=== PATIENT | male | born 1945 | race Caucasian/White ===

== ENCOUNTER 2024-05-09 08:22 | Day surgery (SDC) | payer MEDICARE ==
[2024-05-09] MEDS: Lactated Ringers 1,000 ML IV SCH (08:43)
[2024-05-09 09:09] VITALS: RESP 18
[2024-05-09] MEDS ORDERED: Xylocaine-Mpf 2% 5 Ml Vial ONE (11:33)
[2024-05-09] MEDS ORDERED: DIPRIVAN 200 MG/20 ML IV ONE (11:33)
[2024-05-09 12:29] VITALS: TEMP 98
[2024-05-09 12:32] VITALS: BP 124/78; PULSE 68; O2SAT 96
--- NOTE | 2024-05-10 20:33 | OP ---
SURGERY DATE/TIME: 05/09/2024 1132 - 1149 PREOPERATIVE DIAGNOSIS: Dysphagia. POSTOPERATIVE DIAGNOSES: 1) Dysphagia. 2) Mild stricture, cricopharyngeal. 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 4) Mild gastritis. PROCEDURES PERFORMED: 1) Esophagogastroduodenoscopy. 2) Gastric biopsy. 3) Esophageal dilation. SURGEON: Guilherme Soto MD ANESTHESIA: IV anesthesia. PATIENT CONDITION: Stable. COMPLICATIONS: None. SPECIMENS: Antral biopsy for H pylori. INDICATIONS: The patient is a 79-year-old male having some dysphagia, history of ENT cancer with radiation that he is having kind of coughing, liquid and sometimes some food after eating, drinking. He did have a barium swallow, which shows aspiration of thin liquids. Discussion was had with the patient. Option of a PEG tube; however, he does want to proceed with Speech Therapy and thickened liquids and following up for that but he wants to proceed with an EGD, possible dilation and see if that can improve anything and other alternative explanation for the dysphagia. FINDINGS: As below. DESCRIPTION OF PROCEDURE: Patient brought to the endoscopy suite, routinely positioned. A time-out performed. IV anesthesia induced by Anesthesia. The gastroscope was inserted through the mouth, advanced. In the esophagus there was a large diverticulum which had to be navigated and then eventually passed down to the duodenum. Duodenum was normal in appearance. Antrum with moderate erythema. Biopsy taken for H pylori. No obvious hiatal hernia. The esophagus is normal distally. In the mid esophagus, there is a moderate to large diverticulum without any proximal or distal stricture there but at the cricopharyngeus there is a benign-appearing intrinsic stricture that the 15 to 18 mm balloon is used but there is bite resistance at 15 mm. It is dilated up to 18 mm. There is just minimal mucosal disruption that slides easily. Hemostatic satisfactory. The stomach is suctioned out. Scope was withdrawn. The patient tolerated the procedure well, returned to Recovery in stable condition. RECOMMENDATIONS: I recommend a thickened liquid diet, that he is not supposed to have any thin liquids as there is obvious aspiration on the swallow study. Speech Therapy referral. If he needs a PEG, we could do that at some point. He is not accepting that now. Follow up in the office in 2 to 4 weeks.
== END 2024-05-09 12:50 | disposition home or self-care (01) ==
LOC: SDC 08:22
PROVIDERS: ATTEND Surgery
DX: K29.70 Gastritis, unspecified, without bleeding (principal); R13.10 Dysphagia, unspecified; K22.2 Esophageal obstruction; Q39.6 Congenital diverticulum of esophagus
CPT/HCPCS: 93005; 99100; C1726; J2704